=== PATIENT | male | born 1975 | race Caucasian/White ===

== ENCOUNTER 2018-07-24 05:39 | Emergency (ER) | payer OTHER ==
[2018-07-24 06:07] VITALS: BP 160/99; PULSE 94; RESP 24; TEMP 96.4; O2SAT 94
[2018-07-24] MEDS ORDERED: CYCLOBENZAPRINE 10 MG TAB PO ONE (07:02)
[2018-07-24] MEDS ORDERED: KETOROLAC TROMETHAMINE 30 MG/ML SOL IM ONE (07:02)
[2018-07-24] MEDS ORDERED: KETOROLAC TROMETHAMINE 30 MG/ML SOL ONE (07:10)
[2018-07-24] MEDS ORDERED: CYCLOBENZAPRINE 10 MG TAB ONE (07:10)
== END 2018-07-24 08:18 | disposition home or self-care (01) | DRG 552 ==
LOC: ED 05:39
DX: S33.5XXA Sprain of ligaments of lumbar spine, initial encounter (principal)
CPT/HCPCS: 71046; 72120; 96372; 99283; J1885; A9270-GY